=== PATIENT | female | born 1970 | race Hispanic/Latino ===

== ENCOUNTER → 2025-03-11 | Outpatient (CLI) | payer MEDICARE ==
[2025-03-11 15:08] LABS: ASPARTATE AMINOTRANSFERASE 23.0 U/L (10-37); CREATININE 0.9 mg/dL (0.5-1.0); GLOMERULAR FILTR. RATE CALC 76.0 mL/min (>90); GLUCOSE,RANDOM 168.0 mg/dL (70-105); SODIUM SERUM 138.0 mmol/L (136-145); TOTAL PROTEIN, SERUM 7.0 g/dL (6.0-8.3); UREA NITROGEN, BLOOD 14.0 mg/dL (7-18)
== END | disposition home or self-care (01) ==
LOC: LAB 13:46
PROVIDERS: ATTEND Internal Medicine Cardiovascular Disease
DX: I10 Essential (primary) hypertension (principal)
CPT/HCPCS: 36415; 80053

== ENCOUNTER → 2025-03-15 | Outpatient (CLI) | payer MEDICARE ==
[~2025-03-15] MED LIST: IOHEXOL 350 MG/ML 100ML INFUS..BTL IV ONE
--- NOTE | 2025-03-15 21:02 | CARDIOLOGY ---
RAD REPORT: CORNARY CT ANGIO RADIOLOGY REPORT: CORONARY CT ANGIOGRAPHY DATE: Mar 15, 2025 QUALITY: Excellent CLINICAL HISTORY AND INDICATION: [ family h/o CAD] TECHNIQUE: After obtaining a preliminary telescope maintenance image, contrast imaging performed on an [employer] [id number] scanner. A dedicated, limited window, coronary imaging protocol was used, with single breath-hold, retrospective ECG gating, and automated arrhythmia rejection. 100 cc of low osmolar contrast agent: Omnipaque 350 was delivered via a 18-gauge IV catheter in the right antecubital fossa, using a power injector and followed by 60 cc of normal saline bolus as a chaser. Collimated images were reformatted at 0.5 mm intervals, and sent to an offline independent workstation for interpretation, using 3D anatomic reconstructions: Curved multiplanar reconstructions, maximum intensity projections, and multiplanar imaging. 2.5 mg IV metoprolol was administered prior to scanning. 0.4 mg SL nitroglycerin was given. CORONARY ARTERY DESCRIPTIONS: The coronary arteries arise in normal position. Left main coronary artery: Normal caliber vessel that trifurcates into the LAD, ramus and LCx. No stenosis. Left anterior descending coronary artery: Normal caliber vessel and gives rise to diagonal and septal branches. There is mixed calcified and noncalcified plaque in the proximal LAD with 20-30% stenosis. There is mixed calcified and noncalcified plaque in the mid LAD with 70-80% stenosis. Ramus intermedius artery: Normal caliber, no stenosis. Left circumflex coronary artery: Normal caliber, nondominant and gives rise to a large OM branch. No stenosis. Right coronary artery: Large, dominant vessel giving rise to the PL and PDA branches. No stenosis. CAD-RADs: 4A, severe stenosis of the mid LAD. Thoracic Aorta: Normal diameter. Martha Stokc MD Cardiovascular Disease [facility] MARTHA STOCK MD Mar 15, 2025 21:02
== END | disposition home or self-care (01) ==
LOC: RAH 08:37
PROVIDERS: ATTEND Internal Medicine Cardiovascular Disease
DX: I25.10 Atherosclerotic heart disease of native coronary artery without angina pectoris (principal)
CPT/HCPCS: 75574; J3490; Q9967